=== PATIENT | male | born 1995 | race Caucasian/White ===

== ENCOUNTER 2021-12-03 15:00 | Emergency (ER) | payer OTHER ==
[2021-12-03 16:13] LABS: HEMOGLOBIN 15.3 gm/dl (14.0-17.5); RED BLOOD COUNT 5.07 M/UL (4.20-5.50); WHITE BLOOD COUNT 9.7 K/UL (4.5-11.0)
[2021-12-03 16:26] LABS: BUN/CREATININE RATIO 19 (0-10)
[2021-12-03] MEDS ORDERED: PROTONIX40 MG PO (16:48)
== END 2021-12-03 17:08 | disposition home or self-care (01) ==
LOC: ER1 15:00
PROVIDERS: Physician Assistant
DX: R07.89 Other chest pain (principal); R13.10 Dysphagia, unspecified
CPT/HCPCS: 71046; 80053; 82550; 82553; 84484; 85025; 93005; 99285